=== PATIENT | female | born 2005 | race Caucasian/White ===

== ENCOUNTER 2025-02-21 18:28 | Emergency (ER) | payer OTHER ==
[2025-02-21] MEDS ORDERED: Ketorolac Tromethamine 30 MG (1 mL) VIAL ONE (19:38)
== END 2025-02-21 20:27 | disposition home or self-care (01) ==
LOC: CSHERS 18:28
DX: H66.93 Otitis media, unspecified, bilateral (principal); R09.81 Nasal congestion; R29.700 NIHSS score 0
CPT/HCPCS: 87081; 87428; 87430; J1885